=== PATIENT | male | born 1935 | race Caucasian/White ===

== ENCOUNTER 2023-10-01 06:16 | Day surgery (SDC) | payer OTHER ==
[~2023-10-01] VITALS: Ht 165.1 cm; Wt 71.7 kg
[2023-10-01] VITALS (9 sets, daily range): BP systolic 91–139; BP diastolic 56–71; PULSE 59–93; RESP 14–20; TEMP 97.6; O2SAT 88–98
[2023-10-01] MEDS ORDERED: KETO15CR2 TOP (06:54)
[2023-10-01] MEDS ORDERED: LISI5TAB22 PO (06:54)
[2023-10-01] MEDS ORDERED: INSU100V56 (06:54)
[2023-10-01] MEDS ORDERED: ASPI-611 PO (06:54)
[2023-10-01] MEDS ORDERED: METO100T7 PO (06:54)
[2023-10-01] MEDS ORDERED: CLOB15CR11 TOP (06:54)
[2023-10-01] MEDS ORDERED: ATOR20TA66 PO (06:54)
[2023-10-01] MEDS ORDERED: VANCOMYCIN 1,500MG in normal saline IV soln 300 ML IV ONE (07:05)
[2023-10-01] MEDS ORDERED: cefazolin 2gm/D5W 100mL 100 ML IV ONE (07:05)
[2023-10-01 07:31] LABS: PROTHROMBIN TIME 10.8 SECONDS (9.0-12.0)
[2023-10-01 07:37] LABS: BASOPHILS # (AUTO) 0.1 X10'3 (0-0.2); BASOPHILS % (AUTO) 1.1 % (0-1); EOSINOPHILS # (AUTO) 0.4 X10'3 (0-0.9); EOSINOPHILS % (AUTO) 5.4 % (0-6); HEMATOCRIT 45.6 % (42.0-52.0); HEMOGLOBIN 15.3 g/dl (14.0-17.9); LYMPHOCYTES # (AUTO) 2.6 X10'3 (1.1-4.8); LYMPHOCYTES % (AUTO) 33.2 % (21-51); MEAN CORPUSCULAR HEMOGLOBIN 31.2 PG (27.0-31.0); MEAN CORPUSCULAR HGB CONC 33.4 g/dL (33.0-36.5); MEAN CORPUSCULAR VOLUME 93.4 FL (78-98); MEAN PLATELET VOLUME 10.2 FL (7.4-10.4); MONOCYTES # (AUTO) 0.8 X10'3 (0-0.9); MONOCYTES % (AUTO) 9.8 % (2-12); NEUTROPHILS # (AUTO) 3.9 X10'3 (1.8-7.7); NEUTROPHILS % (AUTO) 50.5 % (42-75); PLATELET COUNT 174 X10'3 (140-440); RED BLOOD COUNT 4.89 X10'6 (4.70-6.10); RED CELL DISTRIBUTION WIDTH 14.5 % (11.5-14.5); WHITE BLOOD COUNT 7.8 X10'3 (4.5-11.0)
[2023-10-01 07:38] LABS: ALBUMIN 2.4 G/DL (3.4-5.0); ANION GAP 7 (8-16); BLOOD UREA NITROGEN 17 MG/DL (7-18); BUN/CREATININE RATIO 17.3 (10.0-20.0); CALCIUM 8.7 MG/DL (8.5-10.1); CHLORIDE 105 MMOL/L (99-107); CREATININE 0.98 MG/DL (0.60-1.10); GLUCOSE 128 MG/DL (70-104); MAGNESIUM 1.9 MG/DL (1.5-2.4); POTASSIUM 3.9 MMOL/L (3.5-5.1); SODIUM 139 MMOL/L (135-145); TOTAL CARBON DIOXIDE 27.2 MMOL/L (24-32); eCRCL 47 ML/MIN; eGFR 73 ML/MIN
[2023-10-01] MEDS ORDERED: vancomycin 1,000mg inj ONE (08:11)
[2023-10-01] MEDS ORDERED: LIDOcaine 1% W/epiNEPHrine 1:100,000 20ml vial ONE (08:11)
[2023-10-01] MEDS ORDERED: midazolam 1 mg/ML 2ml injection ONE ×2 (08:23→09:44)
[2023-10-01] MEDS ORDERED: fentaNYL/PF 50MCG/1 ML 2ML syringe ONE ×2 (08:23→09:44)
[2023-10-01] MEDS ORDERED: normal saline 1000ml 1,000 ML IV SCH (10:40)
[2023-10-01] MEDS ORDERED: amiodarone 50MG/ML inj IV ONE (10:45)
[2023-10-01] MEDS: amiodarone 150mg/dext, iso-os 100 ML IV SCH ×2 (10:51→11:01)
== END 2023-10-01 12:00 | disposition home or self-care (01) ==
LOC: CATH LAB 06:16 → SSTAY O 12:00
PROVIDERS: ATTEND Internal Medicine Cardiovascular Disease
DX: Z45.010 Encounter for checking and testing of cardiac pacemaker pulse generator [battery] (principal); I11.0 Hypertensive heart disease with heart failure; I50.9 Heart failure, unspecified; E11.9 Type 2 diabetes mellitus without complications; E78.00 Pure hypercholesterolemia, unspecified; I48.91 Unspecified atrial fibrillation; G47.33 Obstructive sleep apnea (adult) (pediatric); N40.0 Benign prostatic hyperplasia without lower urinary tract symptoms; Z79.2 Long term (current) use of antibiotics; Z79.84 Long term (current) use of oral hypoglycemic drugs; Z79.899 Other long term (current) drug therapy
CPT/HCPCS: 33228; 36415; 80048; 83735; 85025; 85610; 92960; 99152; 99153; C1785; J0282; J0690; J2250; J3010; J3370; J3490; J7030; J7040; A4615; A6258

== ENCOUNTER 2024-06-13 17:02 | Inpatient (IN) | payer OTHER, MEDICARE, MEDICAID ==
[~2024-06-13] VITALS: Ht 182.9 cm; Wt 65.5 kg
[~2024-06-13 17:02] MED LIST: ASPI-611 PO; ATOR20TA66 PO; LISI5TAB22 PO; METO100T7 PO
[2024-06-13] MEDS: ipratropium/albuterol 3ml nebule NEB ONE (18:24)
[2024-06-13 18:25] VITALS: PULSE 83; RESP 18; O2SAT 93
[2024-06-13 18:33] VITALS: PULSE 85; RESP 18; O2SAT 98
[2024-06-13 18:33] LABS: BASOPHILS # (AUTO) 0.1 X10'3 (0-0.2); BASOPHILS % (AUTO) 1.1 % (0-1); EOSINOPHILS # (AUTO) 0.1 X10'3 (0-0.9); HEMATOCRIT 44.7 % (42.0-52.0); HEMOGLOBIN 14.9 g/dl (14.0-17.9); LYMPHOCYTES # (AUTO) 1.9 X10'3 (1.1-4.8); LYMPHOCYTES % (AUTO) 19.2 % (21-51); MEAN CORPUSCULAR HEMOGLOBIN 31.4 PG (27.0-31.0); MEAN CORPUSCULAR HGB CONC 33.3 g/dL (33.0-36.5); MEAN CORPUSCULAR VOLUME 94.5 FL (78-98); MEAN PLATELET VOLUME 9.7 FL (7.4-10.4); MONOCYTES % (AUTO) 10.4 % (2-12); NEUTROPHILS # (AUTO) 6.6 X10'3 (1.8-7.7); NEUTROPHILS % (AUTO) 68.3 % (42-75); PLATELET COUNT 249 X10'3 (140-440); RED BLOOD COUNT 4.73 X10'6 (4.70-6.10); RED CELL DISTRIBUTION WIDTH 14.7 % (11.5-14.5); WHITE BLOOD COUNT 9.7 X10'3 (4.5-11.0)
[2024-06-13 18:59] LABS: ALBUMIN 2.2 G/DL (3.4-5.0); ANION GAP 8 (8-16); BLOOD UREA NITROGEN 20 MG/DL (7-18); BUN/CREATININE RATIO 18.2 (10.0-20.0); CALCIUM 8.8 MG/DL (8.5-10.1); CHLORIDE 103 MMOL/L (99-107); GLUCOSE 161 MG/DL (70-104); POTASSIUM 4.2 MMOL/L (3.5-5.1); PRO BRAIN NATRIURETIC PEPTIDE 431 PG/ML (0-450); SODIUM 138 MMOL/L (135-145); TOTAL CARBON DIOXIDE 26.7 MMOL/L (24-32); eCRCL 44 ML/MIN; eGFR 63 ML/MIN
[2024-06-13] MEDS ORDERED: iohexol 350MG/ML 100ml bottle IV ONE (19:11)
[2024-06-13 21:48] LABS: PRO BRAIN NATRIURETIC PEPTIDE 357 PG/ML (0-450)
[2024-06-13] MEDS: piperacillin/tazo 3.375gm/50ml 50 ML IV SCH (22:18)
[2024-06-13] MEDS ORDERED: EMPA10TA PO (22:25)
[2024-06-13] MEDS ORDERED: FURO-150 PO (22:25)
[2024-06-13] MEDS ORDERED: ALBU18HF2 INH (22:25)
[2024-06-13] MEDS ORDERED: SPIR25TA5 PO (22:25)
[2024-06-13] MEDS ORDERED: INSU100V49 (22:25)
[2024-06-13] MEDS ORDERED: potassium Cl 40MEQ/1/2NS 520ml 520 ML IV PRN (23:30)
[2024-06-13] MEDS ORDERED: magnesium hydroxide 30ml (MOM) UD suspension PO PRN (23:30)
[2024-06-13] MEDS ORDERED: magnesium sulf-water 2g/50mL 50 ML IV PRN (23:30)
[2024-06-13] MEDS ORDERED: acetaminophen 325mg tablet PO PRN (23:30)
[2024-06-13] MEDS ORDERED: magnesium Cl slow-release 64mg tablet PO PRN (23:30)
[2024-06-13] MEDS ORDERED: morphine 2 MG/ML inj. syringe IV PRN (23:30)
[2024-06-13] MEDS ORDERED: potassium Cl 20 mEq SR tablet PO PRN ×2 (23:30)
[2024-06-13] MEDS ORDERED: magnesium sulf-water 4G/100mL 100 ML IV PRN (23:30)
[2024-06-13] MEDS ORDERED: mag hydrox/Alum hydrox/simeth 30ml oral suspension PO PRN (23:30)
[2024-06-13] MEDS ORDERED: ondansetron/PF 4mg/2ml inj IV PRN (23:30)
[2024-06-13] MEDS ORDERED: glucagon, human recombinant 1mg kit SUBCUT PRN (23:40)
[2024-06-13] MEDS ORDERED: DEXTROSE 15 GM of carb/4 tabs (each vial/BOTTLE has 4 tablets) PO PRN ×2 (23:40)
[2024-06-13] MEDS ORDERED: dextrose 50%-water 50ml dispensing syringe IV PRN ×2 (23:40)
[2024-06-13 23:58] LABS: MAGNESIUM 2.3 MG/DL (1.5-2.4); PHOSPHORUS 3.2 MG/DL (2.3-4.5)
[2024-06-14] VITALS (16 sets, daily range): BP systolic 110–142; BP diastolic 55–64; PULSE 60–80; RESP 16–26; TEMP 97.4–97.9; O2SAT 96–98
[2024-06-14 00:58] LABS: INR 1.1 INR; PROTHROMBIN TIME 11.5 SECONDS (9.0-12.0)
[2024-06-14] MEDS: normal saline 1000ml 1,000 ML IV SCH (01:23)
[2024-06-14] MEDS: vancomycin/NS 1 GM ADD-VANTAGE 250 ML X 1 DOSE IV ONE (01:26)
[2024-06-14] MEDS: ipratropium/albuterol 3ml nebule NEB SCH (03:26)
[2024-06-14] MEDS: ringers solution, lacted 1,000 ML IV SCH (05:15)
[2024-06-14] MEDS: INSULIN LISPRO 100 UNIT/ML INSULN.PEN MULTI-DOSE SQ SCH (07:00)
[2024-06-14] MEDS: budesonide 0.5mg/2ml UD nebule IH SCH (07:58)
[2024-06-14] MEDS: K and/or MAG REPLACEMENT MC SCH (08:00)
[2024-06-14] MEDS: aspirin 81mg, enteric-coated 1 TAB TABLET.DR PO SCH (08:27)
[2024-06-14] MEDS: atorvastatin 20mg tablet PO SCH (08:28)
[2024-06-14] MEDS: heparin, porcine 5000 units/ml vial SQ SCH (08:28)
[2024-06-14] MEDS: EMPAGLIFLOZIN 10 MG TABLET PO SCH (08:28)
[2024-06-14] MEDS: metoprolol succinate 25mg (24-HOUR) SR. Tablet PO SCH (08:28)
[2024-06-14] MEDS: docusate sod 100mg capsule PO SCH (08:28)
[2024-06-14 09:44] LABS: BASOPHILS # (AUTO) 0.1 X10'3 (0-0.2); BASOPHILS % (AUTO) 0.5 % (0-1); EOSINOPHILS % (AUTO) 0.1 % (0-6); HEMATOCRIT 46.4 % (42.0-52.0); HEMOGLOBIN 14.9 g/dl (14.0-17.9); LYMPHOCYTES # (AUTO) 2.3 X10'3 (1.1-4.8); LYMPHOCYTES % (AUTO) 11.8 % (21-51); MEAN CORPUSCULAR HEMOGLOBIN 30.8 PG (27.0-31.0); MEAN CORPUSCULAR HGB CONC 32.1 g/dL (33.0-36.5); MEAN CORPUSCULAR VOLUME 96.2 FL (78-98); MEAN PLATELET VOLUME 9.7 FL (7.4-10.4); MONOCYTES # (AUTO) 1.4 X10'3 (0-0.9); MONOCYTES % (AUTO) 7.3 % (2-12); NEUTROPHILS # (AUTO) 15.7 X10'3 (1.8-7.7); NEUTROPHILS % (AUTO) 80.3 % (42-75); PLATELET COUNT 223 X10'3 (140-440); RED BLOOD COUNT 4.82 X10'6 (4.70-6.10); WHITE BLOOD COUNT 19.5 X10'3 (4.5-11.0)
[2024-06-14 10:03] LABS: ALANINE AMINOTRANSFERASE 41 U/L (12-78); ALBUMIN 2.2 G/DL (3.4-5.0); ALBUMIN/GLOBULIN RATIO 0.4 (1.1-1.5); ALKALINE PHOSPHATASE 311 IU/L (46-116); ANION GAP 9 (8-16); ASPARTATE AMINO TRANSFERASE 39 U/L (10-37); BLOOD UREA NITROGEN 19 MG/DL (7-18); BUN/CREATININE RATIO 14.8 (10.0-20.0); CALCIUM 8.4 MG/DL (8.5-10.1); CHLORIDE 103 MMOL/L (99-107); CHOL/HDL RATIO 2.2 (0.00-4.99); CHOLESTEROL 93 MG/DL (0-200); CREATININE 1.28 MG/DL (0.60-1.10); GLUCOSE 147 MG/DL (70-104); HDL CHOLESTEROL 43 MG/DL (35-60); LDL CHOLESTEROL 41 MG/DL (50-100); MAGNESIUM 2.5 MG/DL (1.5-2.4); POTASSIUM 4.3 MMOL/L (3.5-5.1); SODIUM 140 MMOL/L (135-145); TOTAL CARBON DIOXIDE 28.2 MMOL/L (24-32); TOTAL PROTEIN 8.1 G/DL (6.4-8.2); TRIGLYCERIDES 73 MG/DL (20-135); eCRCL 38 ML/MIN; eGFR 53 ML/MIN
[2024-06-14 10:08] LABS: BILIRUBIN,URINE NEGATIVE (Neg); CLARITY,URINE CLOUDY (Clear); COLOR,URINE YELLOW (Yellow); GLUCOSE, URINE >=1000 mg/dl (Neg); KETONES,URINE NEGATIVE (Neg); LEUKOCYTE ESTERASE ,URINE SMALL (Neg); NITRITES, URINE NEGATIVE (Neg); OCCULT BLOOD,URINE MODERATE (Neg); PROTEIN,URINE NEGATIVE (Neg); UA COLLECTION TYPE NON-SPECIFIED; UROBILINOGEN,URINE 0.2 E.U/dL (0.2-1.0)
[2024-06-14 10:18] LABS: WBC,URINE 50-100 /HPF (0-4)
[2024-06-14 10:19] LABS: BACTERIA,URINE 2+ /HPF (Neg); MUCUS STRANDS NONE SEEN /LPF (Neg); SQUAMOUS EPITHELIAL CELL,UR FEW /LPF (FEW); WBC CLUMPS,URINE FEW /HPF (NEGATIVE); YEAST MANY /HPF (NEGATIVE)
[2024-06-14] MEDS: piperacillin/tazo 4.5gm/100ml 100 ML IV SCH (10:20)
[2024-06-14] MEDS: insulin glargine (Lantus) pen - multi-dose SQ SCH (20:55)
[2024-06-14] MEDS ORDERED: vancomycin/NS 1 GM ADD-VANTAGE 250 ML IV SCH (23:00)
[2024-06-15] VITALS (17 sets, daily range): BP systolic 111–130; BP diastolic 49–54; PULSE 57–75; RESP 15–24; TEMP 97–98.4; O2SAT 93–98
[2024-06-15] MEDS: VANCOMYCIN 750MG IV in NS 250 ML IV SCH (00:23)
[2024-06-15 07:44] LABS: BASOPHILS # (AUTO) 0.1 X10'3 (0-0.2); BASOPHILS % (AUTO) 0.6 % (0-1); EOSINOPHILS # (AUTO) 0.1 X10'3 (0-0.9); EOSINOPHILS % (AUTO) 0.4 % (0-6); HEMATOCRIT 41.4 % (42.0-52.0); HEMOGLOBIN 13.8 g/dl (14.0-17.9); LYMPHOCYTES # (AUTO) 1.5 X10'3 (1.1-4.8); LYMPHOCYTES % (AUTO) 9.6 % (21-51); MEAN CORPUSCULAR HGB CONC 33.4 g/dL (33.0-36.5); MEAN PLATELET VOLUME 9.6 FL (7.4-10.4); MONOCYTES # (AUTO) 1.5 X10'3 (0-0.9); MONOCYTES % (AUTO) 9.3 % (2-12); NEUTROPHILS # (AUTO) 12.6 X10'3 (1.8-7.7); NEUTROPHILS % (AUTO) 80.1 % (42-75); PLATELET COUNT 217 X10'3 (140-440); RED BLOOD COUNT 4.31 X10'6 (4.70-6.10); RED CELL DISTRIBUTION WIDTH 14.9 % (11.5-14.5); WHITE BLOOD COUNT 15.7 X10'3 (4.5-11.0)
[2024-06-15 07:59] LABS: ALANINE AMINOTRANSFERASE 31 U/L (12-78); ALBUMIN 1.8 G/DL (3.4-5.0); ALBUMIN/GLOBULIN RATIO 0.3 (1.1-1.5); ALKALINE PHOSPHATASE 265 IU/L (46-116); ANION GAP 8 (8-16); ASPARTATE AMINO TRANSFERASE 34 U/L (10-37); BILIRUBIN,TOTAL 1.1 MG/DL (0.1-1.0); BLOOD UREA NITROGEN 22 MG/DL (7-18); BUN/CREATININE RATIO 20.6 (10.0-20.0); CALCIUM 8.1 MG/DL (8.5-10.1); CHLORIDE 105 MMOL/L (99-107); CREATININE 1.07 MG/DL (0.60-1.10); GLUCOSE 119 MG/DL (70-104); MAGNESIUM 2.5 MG/DL (1.5-2.4); POTASSIUM 4.5 MMOL/L (3.5-5.1); SODIUM 138 MMOL/L (135-145); TOTAL CARBON DIOXIDE 25.4 MMOL/L (24-32); TOTAL PROTEIN 7.3 G/DL (6.4-8.2); eCRCL 45 ML/MIN; eGFR 65 ML/MIN
[2024-06-15] MEDS ORDERED: morphine 4 MG/ML inj SYRINge IV PRN (20:30)
[2024-06-15] MEDS ORDERED: morphine 2 MG/ML inj. syringe IV PRN (20:30)
[2024-06-16] VITALS (10 sets, daily range): BP systolic 92–119; BP diastolic 53–66; PULSE 61–96; RESP 16–18; TEMP 97.1–97.8; O2SAT 94–97
[2024-06-16 07:49] LABS: BASOPHILS # (AUTO) 0.1 X10'3 (0-0.2); BASOPHILS % (AUTO) 0.6 % (0-1); EOSINOPHILS # (AUTO) 0.1 X10'3 (0-0.9); EOSINOPHILS % (AUTO) 0.8 % (0-6); HEMATOCRIT 38.3 % (42.0-52.0); HEMOGLOBIN 12.5 g/dl (14.0-17.9); LYMPHOCYTES # (AUTO) 1.6 X10'3 (1.1-4.8); LYMPHOCYTES % (AUTO) 13.7 % (21-51); MEAN CORPUSCULAR HEMOGLOBIN 31.1 PG (27.0-31.0); MEAN CORPUSCULAR HGB CONC 32.7 g/dL (33.0-36.5); MEAN CORPUSCULAR VOLUME 95.3 FL (78-98); MEAN PLATELET VOLUME 9.6 FL (7.4-10.4); MONOCYTES # (AUTO) 1.3 X10'3 (0-0.9); MONOCYTES % (AUTO) 11.3 % (2-12); NEUTROPHILS # (AUTO) 8.5 X10'3 (1.8-7.7); NEUTROPHILS % (AUTO) 73.6 % (42-75); PLATELET COUNT 186 X10'3 (140-440); RED BLOOD COUNT 4.02 X10'6 (4.70-6.10); RED CELL DISTRIBUTION WIDTH 14.9 % (11.5-14.5); WHITE BLOOD COUNT 11.6 X10'3 (4.5-11.0)
[2024-06-16 08:17] LABS: ALANINE AMINOTRANSFERASE 22 U/L (12-78); ALBUMIN 1.6 G/DL (3.4-5.0); ALBUMIN/GLOBULIN RATIO 0.3 (1.1-1.5); ALKALINE PHOSPHATASE 217 IU/L (46-116); ANION GAP 6 (8-16); ASPARTATE AMINO TRANSFERASE 24 U/L (10-37); BILIRUBIN,TOTAL 0.8 MG/DL (0.1-1.0); BLOOD UREA NITROGEN 24 MG/DL (7-18); BUN/CREATININE RATIO 24.7 (10.0-20.0); CALCIUM 7.9 MG/DL (8.5-10.1); CHLORIDE 109 MMOL/L (99-107); CREATININE 0.97 MG/DL (0.60-1.10); GLUCOSE 101 MG/DL (70-104); MAGNESIUM 2.2 MG/DL (1.5-2.4); POTASSIUM 3.9 MMOL/L (3.5-5.1); SODIUM 140 MMOL/L (135-145); TOTAL CARBON DIOXIDE 25.4 MMOL/L (24-32); TOTAL PROTEIN 6.6 G/DL (6.4-8.2); eCRCL 50 ML/MIN; eGFR 73 ML/MIN
[2024-06-16] MEDS ORDERED: morphine 2 MG/ML inj. syringe IV PRN (08:50)
[2024-06-16] MEDS: CefTRIAXone 2gm/D5W 50ml BAG 50 ML IV SCH (10:11)
[2024-06-17] MEDS ORDERED: VANCOMYCIN LEVEL IV ONE (00:30)
== END 2024-06-16 15:30 | DRG 871 ==
LOC: ER 17:02 → ED HOLD 23:32 → PCU 3S 06-14 07:00
PROVIDERS: ADMIT Internal Medicine Critical Care Medicine; ATTEND Registered Nurse Psychiatric/Mental Health
PROC: B32T1ZZ Computerized Tomography (CT Scan) of Left Pulmonary Artery using Low Osmolar Contrast (ICD-10-PCS; principal; 2024-06-13)
PROC: B3201ZZ Computerized Tomography (CT Scan) of Thoracic Aorta using Low Osmolar Contrast (ICD-10-PCS; 2024-06-13)
PROC: B32S1ZZ Computerized Tomography (CT Scan) of Right Pulmonary Artery using Low Osmolar Contrast (ICD-10-PCS; 2024-06-13)
DX: A41.9 Sepsis, unspecified organism (principal); E43 Unspecified severe protein-calorie malnutrition; J96.21 Acute and chronic respiratory failure with hypoxia; J69.0 Pneumonitis due to inhalation of food and vomit; G93.41 Metabolic encephalopathy; J18.9 Pneumonia, unspecified organism; I50.32 Chronic diastolic (congestive) heart failure; Z68.1 Body mass index [BMI] 19.9 or less, adult; N12 Tubulo-interstitial nephritis, not specified as acute or chronic; I48.0 Paroxysmal atrial fibrillation; Z66 Do not resuscitate; N19 Unspecified kidney failure; F03.B0 Unspecified dementia, moderate, without behavioral disturbance, psychotic disturbance, mood disturbance, and anxiety; E11.65 Type 2 diabetes mellitus with hyperglycemia; E78.5 Hyperlipidemia, unspecified; R59.0 Localized enlarged lymph nodes; Z79.899 Other long term (current) drug therapy; I25.2 Old myocardial infarction; Z79.82 Long term (current) use of aspirin; Z95.0 Presence of cardiac pacemaker
CPT/HCPCS: 36415; 71045; 71275; 80048; 80053; 80061; 81001; 82948; 83605; 83735; 83880; 84100; 84145; 84484; 85025; 85610; 87040; 87081; 87088; 92508; 92616; 93005; 94640; 94760; 97110; 97161; 97530; A4615; A4620; G0378; J0696; J1644; J1815; J2543; J3370; J7030; J7040; J7050; J7120; Q9967